=== PATIENT | female | born 1935 | race African-American/Black ===

== ENCOUNTER → 2016-06-01 | Outpatient (CLI) | payer MEDICARE, BC | END | disposition home or self-care (01) | LOC: CT 07:47 | PROVIDERS: ATTEND Internal Medicine Gastroenterology | DX: K58.9 Irritable bowel syndrome, unspecified (principal); R10.31 Right lower quadrant pain; I10 Essential (primary) hypertension | CPT/HCPCS: 74176 ==

== ENCOUNTER 2016-10-10 10:08 | Inpatient (IN) | payer MEDICARE, BC ==
[~2016-10-10] VITALS: Ht 158.8 cm; Wt 73.0 kg
[2016-10-10] MEDS ORDERED: HYDRALAZINE 20MG/ML VIAL IV ONE (11:00)
[2016-10-10 11:09] LABS: BASOPHILS % 0.4 % (0.0-2.0); EOSINOPHILS % 0.4 % (0.0-5.0); HEMATOCRIT. 30.4 % (36.0-48.0); HEMOGLOBIN. 10.1 g/dL (12.0-16.0); LYMPHOCYTES % 25.1 % (20.0-50.0); MEAN CORPUSCULAR HEMOGLOBIN 26.3 pg (28.0-32.0); MEAN PLATELET VOLUME 8.2 fl (7.4-10.4); MONOCYTES % 7.1 % (2.0-8.0); PLATELET 204 x1000/uL (130-400); RED BLOOD CELL COUNT 3.84 mill/uL (4.2-5.4); RED CELL DISTRIBUTION WIDTH 15.3 % (11.6-14.6)
[2016-10-10 11:15] LABS: CHLORIDE 103 mEq/L (98-107)
[2016-10-10 11:17] LABS: PROTHROMBIN TIME 10.9 sec
[2016-10-10 11:23] LABS: CARBON DIOXIDE 30 mEq/L (21-32); ETHANOL BLOOD < 10 mg/dL
[2016-10-10 11:26] LABS: TROPONIN I < 0.02 ng/mL (0.00-0.04)
[2016-10-10 11:46] LABS: *AMPHETAMINES SCREEN URINE NEGATIVE (NEGATIVE); *BARBITURATES SCREEN URINE NEGATIVE (NEGATIVE); *BENZODIAZEPINES SCREEN URINE NEGATIVE (NEGATIVE); *COCAINE SCREEN URINE NEGATIVE (NEGATIVE); CANNABINOID URINE SCREEN NEGATIVE (NEGATIVE); METHADONE URINE SCREEN NEGATIVE (NEGATIVE); OPIATES URINE SCREEN NEGATIVE (NEGATIVE); PHENCYCLIDINE URINE SCREEN NEGATIVE (NEGATIVE)
[2016-10-10 11:56] LABS: CLARITY URINE CLEAR (CLEAR); COLOR URINE YELLOW (YELLOW); GLUCOSE URINE NEGATIVE (NEGATIVE); KETONES URINE NEGATIVE (NEGATIVE); LEUKOCYTE ESTERASE URINE 2+ (NEGATIVE); NITRITE URINE NEGATIVE (NEGATIVE); OCCULT BLOOD URINE NEGATIVE (NEGATIVE); PH URINE 6.5 (4.5-8.0); PROTEIN URINE NEGATIVE (NEGATIVE); SPECIFIC GRAVITY URINE 1.011 (1.005-1.030); UROBILINOGEN URINE 0.2 E.U./dL (0.2-1.0)
[2016-10-10] MEDS ORDERED: DOCUSATE SODIUM 100MG CAPSULE PO PRN (18:45)
[2016-10-10] MEDS ORDERED: CLONIDINE 0.1MG TABLET PO PRN (18:45)
[2016-10-10] MEDS ORDERED: GUAIFENESIN 200MG/10ML SUGAR FREE UDC PO PRN (18:45)
[2016-10-10] MEDS ORDERED: HYDROCODONE/ACETAMINOPHEN 5/325MG TABLET PO PRN (18:45)
[2016-10-10] MEDS ORDERED: ACETAMINOPHEN 325MG TABLET PO PRN (18:45)
[2016-10-10] MEDS ORDERED: ONDANSETRON HCL 4MG/2ML VIAL IV PRN (18:45)
[2016-10-10] MEDS ORDERED: LEVOFLOXACIN 500MG PREMIX 100 ML IV NR (20:00)
[2016-10-10 20:30] VITALS: BP 130/72
[2016-10-10 22:21] VITALS: BP 130/72
[2016-10-10 23:20] LABS: CREATINE KINASE 86 IU/L (26-192); CREATINE KINASE MB FRACTION 1.3 ng/mL (0.5-3.6); TROPONIN I < 0.02 ng/mL (0.00-0.04)
[2016-10-11] VITALS: BP 145/67
[2016-10-11 04:00] VITALS: BP 148/70
[2016-10-11 06:39] LABS: BASOPHILS % 0.2 % (0.0-2.0); EOSINOPHILS % 1.4 % (0.0-5.0); HEMOGLOBIN. 9.6 g/dL (12.0-16.0); LYMPHOCYTES % 29.3 % (20.0-50.0); MEAN CORPUSCULAR HEMOGLOBIN 26.2 pg (28.0-32.0); MEAN CORPUSCULAR VOLUME 78.7 fL (81.0-99.0); MEAN PLATELET VOLUME 8.7 fl (7.4-10.4); MONOCYTES % 8.1 % (2.0-8.0); PLATELET 202 x1000/uL (130-400); RED BLOOD CELL COUNT 3.68 mill/uL (4.2-5.4); RED CELL DISTRIBUTION WIDTH 15.4 % (11.6-14.6)
[2016-10-11 07:14] LABS: CARBON DIOXIDE 26 mEq/L (21-32); CHLORIDE 104 mEq/L (98-107)
[2016-10-11 07:21] LABS: CREATINE KINASE 76 IU/L (26-192); CREATINE KINASE MB FRACTION 0.8 ng/mL (0.5-3.6); HDL CHOLESTEROL 73 mg/dL (40-59); LDL CHOLESTEROL 92 mg/dL (5-100); TROPONIN I < 0.02 ng/mL (0.00-0.04)
[2016-10-11 08:00] VITALS: BP 179/79
[2016-10-11] MEDS: ASPIRIN 81MG EC TABLET PO SCH (09:55)
[2016-10-11] MEDS: METOPROLOL TARTRATE 25MG TABLET PO SCH ×2 (09:56→21:00)
[2016-10-11] MEDS: AMLODIPINE 10MG TABLET PO SCH (09:56)
[2016-10-11] MEDS: ENOXAPARIN 40MG/0.4ML SYR SUBCUT SCH (09:57)
[2016-10-11 12:00] VITALS: BP 151/68
[2016-10-11] MEDS ORDERED: ENALAPRIL 2.5MG/2ML VIAL 2ML IV PRN (14:15)
[2016-10-11] MEDS: LOSARTAN POTASSIUM 100 MG TABLET PO SCH (14:29)
[2016-10-11] MEDS: FOLIC ACID 1MG TABLET PO SCH (14:29)
[2016-10-11] MEDS: HYDRALAZINE HCL 25MG TABLET PO SCH ×2 (14:29→22:00)
[2016-10-11 16:00] VITALS: BP 117/56
[2016-10-11] MEDS: METFORMIN HCL 500MG TABLET PO SCH (17:36)
[2016-10-11 20:00] VITALS: BP 103/57
[2016-10-11] MEDS ORDERED: LEVOFLOXACIN 250MG PREMIX 50 ML IV SCH (20:00)
[2016-10-12] VITALS: BP 130/60
[2016-10-12 04:00] VITALS: BP 145/62
[2016-10-12] MEDS: HYDRALAZINE HCL 25MG TABLET PO SCH (06:45)
[2016-10-12 07:11] LABS: BASOPHILS % 0.3 % (0.0-2.0); EOSINOPHILS % 1.6 % (0.0-5.0); HEMATOCRIT. 28.6 % (36.0-48.0); HEMOGLOBIN. 9.6 g/dL (12.0-16.0); LYMPHOCYTES % 32.3 % (20.0-50.0); MEAN CORPUSCULAR HEMOGLOBIN 26.3 pg (28.0-32.0); MEAN CORPUSCULAR VOLUME 78.3 fL (81.0-99.0); MEAN PLATELET VOLUME 8.8 fl (7.4-10.4); NEUTROPHILS % 56.8 % (40.0-76.0); PLATELET 192 x1000/uL (130-400); RED BLOOD CELL COUNT 3.66 mill/uL (4.2-5.4); RED CELL DISTRIBUTION WIDTH 15.7 % (11.6-14.6)
[2016-10-12 07:48] LABS: CARBON DIOXIDE 31 mEq/L (21-32); CHLORIDE 105 mEq/L (98-107); TROPONIN I < 0.02 ng/mL (0.00-0.04)
[2016-10-12 08:15] VITALS: BP 147/81
[2016-10-12] MEDS: ENOXAPARIN 40MG/0.4ML SYR SUBCUT SCH (08:17)
[2016-10-12] MEDS: AMLODIPINE 10MG TABLET PO SCH (08:18)
[2016-10-12] MEDS: FOLIC ACID 1MG TABLET PO SCH (08:18)
[2016-10-12] MEDS: LOSARTAN POTASSIUM 100 MG TABLET PO SCH (08:18)
[2016-10-12] MEDS: METOPROLOL TARTRATE 25MG TABLET PO SCH ×2 (08:19→08:20)
[2016-10-12] MEDS: ASPIRIN 81MG EC TABLET PO SCH (08:19)
[2016-10-12] MEDS: METFORMIN HCL 500MG TABLET PO SCH (08:19)
[2016-10-12] MEDS ORDERED: ENALAPRIL 1.25MG/ML VIAL 1ML IV PRN (09:12)
[2016-10-12 12:33] VITALS: BP 139/73
[2016-10-13] MEDS ORDERED: LEVOFLOXACIN 250MG TABLET PO SCH (11:00)
== END 2016-10-12 14:03 | disposition home or self-care (01) | DRG 305 ==
LOC: ER 11:00 → EDBEDREQTM 12:43 → EDBEDREQ 12:43 → 5WST 12:43 → ENRESERV 15:31
PROVIDERS: ADMIT Hospitalist; ATTEND Hospitalist
DX: I16.0 Hypertensive urgency (principal); I16.9 Hypertensive crisis, unspecified; N39.0 Urinary tract infection, site not specified; E11.9 Type 2 diabetes mellitus without complications; E83.42 Hypomagnesemia; I10 Essential (primary) hypertension; I25.10 Atherosclerotic heart disease of native coronary artery without angina pectoris; M19.90 Unspecified osteoarthritis, unspecified site; Z96.651 Presence of right artificial knee joint; Z90.49 Acquired absence of other specified parts of digestive tract; Z90.5 Acquired absence of kidney; Z90.710 Acquired absence of both cervix and uterus; Z91.14 Patient's other noncompliance with medication regimen
CPT/HCPCS: 36415; 70450; 71010; 74176; 80048; 80053; 80061; 80305; 81001; 82550; 82553; 82962; 83735; 83880; 84439; 84443; 84484; 85025; 85610; 87086; 93005; 93306; 93970; 96374; 99285; G0482; J0360; J1650; J1956; J7040